=== PATIENT | male | born 1980 | race Caucasian/White ===

== ENCOUNTER → 2022-06-15 | Outpatient (CLI) | payer OTHER ==
--- NOTE | 2022-06-15 11:58 | CT ---
EXAMINATION TYPE: CT chest w con DATE OF EXAM: 06/15/2022 COMPARISON: 12/18/2021, 05/15/2021 HISTORY: lung nodule CT DLP: 665.4 mGycm, Automated exposure control for dose reduction was used. CONTRAST: Performed injected with 70 mL of Isovue 300. TECHNIQUE: Axial images were obtained at 5 mm thick sections. Reconstructed images are reviewed on [employer] computer in the coronal plane. FINDINGS: Portion of the thyroid visualized is normal. There is a stable 1.1 cm nodule within the left lower lung field. Series 4 image 40. No enlarged mediastinal or hilar adenopathy is evident. The ascending aorta diameter at the level o f the main pulmonary artery is 2.8 cm. The main pulmonary artery diameter at the bifurcation is 2.[address] sections are obtained through the upper abdomen. Abdomen is essentially unremarkable. Gall bladder is surgically absent.2 IMPRESSIONS: 1. Stable 1.1 cm nodule left lower lung field. Follow-up exam in 6 months is recommended. This should be confirmed as stable over the course of 2 years.
== END | disposition home or self-care (01) ==
LOC: RADCTMAIN 08:44
PROVIDERS: ATTEND Internal Medicine
DX: R91.1 Solitary pulmonary nodule (principal)
CPT/HCPCS: 71260; Q9967

== ENCOUNTER → 2023-03-04 | Outpatient (CLI) | payer OTHER ==
--- NOTE | 2023-03-04 22:31 | CT ---
EXAMINATION TYPE: CT chest w con DATE OF EXAM: 03/04/2023 COMPARISON: 6 06/15/2022 HISTORY: Lung nodule. CT DLP: 684.0 mGycm, Automated exposure control for dose reduction was used. CONTRAST: Performed injected with 100cc mL of Isovue 300. TECHNIQUE: Axial images were obtained at 5 mm thick sections. Reconstructed images are reviewed on [employer] computer in the coronal plane. FINDINGS: Portion of the thyroid visualized is normal. There is a lobular density along the major fissure near the left diaphragm measuring 2.0 x 1.3 cm. Th is is stable from the comparison of 06/15/2022. No additional suspicious nodules are evident. No consol idations are evident. Follow-up exam in 9 months is recommended to confirm stability No enlarged mediastinal or hilar adenopathy is evident. The ascending aorta diameter at the level o f the main pulmonary artery is 3.0 cm. The main pulmonary artery diameter at the bifurcation is 2.[address] sections are obtained through the upper abdomen. Abdomen is essentially unremarkable. IMPRESSIONS: 1. Stable appearing nodule left lung base. Follow-up in 9 months is recommended
== END | disposition home or self-care (01) ==
LOC: RADCTMAIN 17:33
PROVIDERS: ATTEND Internal Medicine
DX: R91.1 Solitary pulmonary nodule (principal)
CPT/HCPCS: 71260; Q9967

== ENCOUNTER → 2024-01-23 | Outpatient (CLI) | payer OTHER, BC ==
--- NOTE | 2024-01-23 10:28 | CT ---
EXAMINATION TYPE: CT chest w con DATE OF EXAM: 01/23/2024 COMPARISON: 03/04/2023, 06/15/2022 HISTORY: 43-year-old male R91.1 solitary lung nodule TECHNIQUE: Contiguous axial scanning of the chest after the administration of 100 mL of Isovue 300. Coronal/sagittal reconstructions performed. CT DLP: 664.2mGycm. Automatic exposure control utilized for a dose reduction. FINDINGS: Heart normal size without pericardial effusion. Aorta normal caliber with conventional arch vessel branching anatomy. Bulky, nodular appearance to the thyroid gland. At least one hypodense nodule in the left lobe measur ing 2.9 cm versus 2.4 cm previously. This can be further evaluated with thyroid ultrasound. No thoracic lymphadenopathy by CT size criteria. No consolidation or pleural effusion. Left basilar nodularity measuring 1.9 x 1.2 cm remains unchange d. There is a punctate internal calcification. Findings may represent a noncalcified granuloma. Markedly diminished attenuation of the liver parenchyma. Cholecystectomy clips. Bones: No osseous destructive process. IMPRESSION: 1. A 1.9 x 1.2 cm left basilar nodularity unchanged from 06/15/2022. Consider an additional one-year gomez rveillance follow-up to demonstrate 2 years of stability. A benign, noncalcified granuloma is favored . 2. Bulky, nodular thyroid gland. At least one nodule measuring 2.9 cm in the left lobe. Thyroid ultra sound can further evaluate. 3. Moderate to severe hepatic steatosis.
== END | disposition home or self-care (01) ==
LOC: RADCTMAIN 09:33
PROVIDERS: ATTEND Internal Medicine
DX: R91.1 Solitary pulmonary nodule (principal); E04.1 Nontoxic single thyroid nodule; K76.0 Fatty (change of) liver, not elsewhere classified
CPT/HCPCS: 71260; Q9967

== ENCOUNTER → 2024-01-30 | Outpatient (CLI) | payer OTHER, BC ==
--- NOTE | 2024-01-31 11:58 | US ---
EXAMINATION TYPE: US thyroid st tissue head/neck DATE OF EXAM: 01/30/2024 COMPARISON: CT 2023 CLINICAL INDICATION: Male, 43 years old with history of E04.1 NONTOXIC SINGLE THYROID NODULE; Thyroid nodule seen on recent CT GLAND SIZE: Right Lobe: 6.4 x 2.2 x 3.2 cm, enlarged Overall Parenchyma: heterogeneous Left Lobe: 7.5 x 2.9 x 3.1 cm, enlarged Overall Parenchyma: heterogeneous Isthmus Thickness: 1.1 cm NODULES RIGHT: # of nodules measured on right: 0 LEFT: # of nodules measured on left: 3 1. 2.2 X 2.5 x 2.5 cm, lower mid, mixed cystic and solid, hypoechoic nodule, which is as tall as it is wide, with smooth margins, without echogenic foci. Prior size: no previous 2. 1.5 X 1.0 x 0.9 cm, lower lateral, mixed cystic and solid, hypoechoic nodule, which is as tall as it is wide, with ill-defined margins, without echogenic foci. Prior size: no previous 3. 1.3 X 0.7 x 0.9 cm, mid medial, solid or almost completely solid, isoechoic nodule, which is wid er than tall, with ill-defined margins, without echogenic foci. Prior size: no previous ISTHMUS: # of nodules measured in the isthmus: 1 1. 2.3 X 1.5 x 2.6 cm solid or almost completely solid, hypoechoic nodule, which is wider than tall , with ill-defined margins, without echogenic foci. Prior size: no previous Bilateral neck scanned, no evidence of lymphadenopathy. IMPRESSION: Moderately Suspicious: FNA if ? 1.5 cm; Follow if ? 1 cm at 1, 2, 3, and 5 y 2017 ACR TI-RADS LEVEL: TR4 *Highest TI-RADS level nodule reported
== END | disposition home or self-care (01) ==
LOC: RADUSWWP 14:39
PROVIDERS: ATTEND Internal Medicine
DX: E04.1 Nontoxic single thyroid nodule (principal)
CPT/HCPCS: 76536

== ENCOUNTER → 2024-10-26 | Outpatient (CLI) | payer OTHER, BC ==
--- NOTE | 2024-10-26 22:52 | CT ---
EXAMINATION TYPE: CT chest w con DATE OF EXAM: 10/26/2024 11:19 AM COMPARISON: 01/23/2024, 06/15/2022 CLINICAL INDICATION: Male, 44 years old with history of R91.8 OTHER NONSPECIFIC ABNORMAL FINDING OF L MONCHO F, Lung Nodule. TECHNIQUE: Axial images were obtained at 5 mm thick sections. Reconstructed images are reviewed on [employer] computer in the coronal plane. Contrast used:100 ml mL of Isovue 300 with IV Contrast, (none if empty) Oral contrast used: (none if empty) CT DLP: 510.8 mGycm, Automated exposure control for dose reduction was used. FINDINGS: Thyroid is enlarged extending towards the superior mediastinum. Within the inferior left thyroid lobe is a 2 cm slightly hypodense area. Small hypodensities in the inferior right thyroid lobe. Additiona l workup with ultrasound is recommended. Findings were present previously There is a 1.1 cm density along the major fissure within the left lower lobe, series 4 image 43. This contains central calcification. Finding appears similar in size to comparison. This appears stable o sara the course of more than 2 years. No enlarged mediastinal or hilar adenopathy is evident. The ascending aorta diameter at the level o f the main pulmonary artery is 2.7 cm. The main pulmonary artery diameter at the bifurcation is 2.6r cm. Limited CT sections are obtained through the upper abdomen. Abdomen is essentially unremarkable. IMPRESSION: 1. Stable nodule anterior left lower lobe. 2. No suspicious acute changes. [facility], , 10/26/2024 10:49 PM
== END | disposition home or self-care (01) ==
LOC: RADCTMAIN 10:59
PROVIDERS: ATTEND Internal Medicine
DX: R91.8 Other nonspecific abnormal finding of lung field (principal)
CPT/HCPCS: 71260; Q9967